=== PATIENT | male | born 1960 | race Caucasian/White ===

== ENCOUNTER 2017-09-01 08:51 | Emergency (ER) | payer MEDICAID ==
[~2017-09-01] VITALS: Ht 175.3 cm; Wt 104.3 kg
[~2017-09-01 08:51] MED LIST: ATORVASTATIN CA20 M1 PO; CLARITIN 10MG T10 MG PO; FLONASE 50 MCG16 GM; METHOCARBAMOL750 MG PO; NIFEDIPINE30 MG PO; OMEPRAZOLE40 MG PO; TRAMADOL 50MG T1 PAK PO
--- OUTSIDE RECORDS SUMMARY | 2017-09-01 09:00 | External Medical Summary Rpt | CCD ---
Author Author , CRISTELA ARCHIBALD Address Unknown Phone Care Team Providers Care Conductor Sleeping Car Name Role Phone ALFONZO ALIZE, BESSON Unavailable Unavailable ALIZE BESSON ALIZE, BESSON Unavailable Unavailable ALIZE HILDA DENNIS, Unavailable Unavailable HILDA DENNIS HILDA DENNIS, Unavailable Unavailable HILDA DENNIS OLMOS, OLMOS Unavailable Unavailable ZAIRA AUGUSTINE, ZAIRA Unavailable Unavailable [facility] ZAIRA AUGUSTINE, ZAIRA Unavailable Unavailable [facility] Un[facility], [facility] Unavailable [facility], [facility], Unavailable [facility]available [facility] Unavailable Unavailable [facility], [facility] Unavailable Unavailable [facility], [facility], Unavailable Unavailable PLL[facility], [facility] Purpose Continuity of Care Document - 12-29-2013 through 2016 Problems Code Diagnosis DOS Provider Status J0101 ACUTE 06-13-2017 [facility] MAXILLARY INTERNAL SINUSITIS MED J0141 ACUTE 03-05-2017 [facility] PANSINUSITI INTERNAL S MED J302 OTHER 03-05-2017 [facility] ALLERGIC INTERNAL RHINITIS MED J309 ALLERGIC 10-15-2016 [facility] RHINITIS PHYSICIANS UNSPECIFIED GROUP J320 CHRONIC 10-15-2016 [facility] MAXILLARY PHYSICIANS SINUSITIS GROUP J322 CHRONIC 10-15-2016 [facility] ETHMOIDAL PHYSICIANS SINUSITIS GROUP J342 DEVIATED 10-15-2016 [facility] NASAL PHYSICIANS SEPTUM GROUP [id number] ALLERGY 09-17-2016 [facility]PEC[facility]IED [facility] SUBSEQUENT INTERNAL ENCOUNTER MED L270 GEN SKIN 09-12-2016 [facility] ERUPTION [facility] D/T RX & INTERNAL MED TAKEN MED INTERNALLY J329 CHRONIC 06-26-2016 [facility] SINUSITIS [facility] UNSPECIFIED INTERNAL MED J3489 OTHER 04-20-2016 [facility] SPECIFIED PHYSICIANS DISORDERS GROUP NOSE AND NASAL SINUSES R748 ABNORMAL 03-07-2016 [facility] OTHER SERUM INC ENZYMES J0190 ACUTE 01-17-2016 [facility] SINUSITIS PHYSICIANS UNSPECIFIED GROUP E6601 MORBID 11-18-2015 [facility]ERE [facility] OBESITY DUE INTERNAL TO EXCESS MED CALORIES E785 HYPERLIPIDE 11-18-2015 [facility] [place] UNSPECIFIED INTERNAL MED I10 ESSENTIAL 11-18-2015 [facility] HYPERTENSIO INTERNAL N MED M150 PRIMARY 11-18-2015 [facility] GENERALIZED [place] INTERNAL OSTEOARTHRI MED TIS R319 HEMATURIA 11-18-2015 [facility] UNSPECIFIED [facility] INTERNAL MED Z0000 ENCOUNTER 11-18-2015 [facility] GEN ADULT [place] MED EXAM INTERNAL W/O MED ABNORMAL FIND M1711 UNILATERAL 08-05-2015 [facility] PRIMARY PHYSICIANS OSTEOARTHRI GROUP TIS RIGHT KNEE M6751 PLICA 08-05-2015 [facility] SYNDROME PHYSICIANS RIGHT KNEE GROUP M1990 UNSPECIFIED 07-27-2015 [facility] TIS UNSPECIFIED SITE B76051 PAIN IN 07-27-2015 [facility]ICAL [facility] R2241 LOCALIZED 07-27-2015 [facility] RIGHT LOWER LIMB L17399 OTH 07-27-2015 [facility] SYMPTOMS & MEDICAL SIGNS [facility]AGING ASS INVOLV MUSCULOSKEL ETAL SYS H6092 UNSPECIFIED 07-01-2015 [facility]IS [facility] EXTERNA INTERNAL LEFT EAR MED [id number] UNS INJURY 07-01-2015 [facility] RT LOWER MEDICAL LEG INITIAL IMAGING ASS ENCOUNTER 34547 ACUT 06-21-2015 [facility] SUPPRATV PHYSICIANS OTITIS GROUP MEDIA W/SPONT RUP EARDRUM 77449 ACUT 06-12-2015 [facility] MED[facility] W/O SPONT RUP EARDRUM 4619 ACUTE 06-12-2015 [facility]ITIS, [facility] 3804 IMPACTED 03-14-2015 [facility] 6829 CELLULITIS 03-14-2015 [facility] UNSPECIFIED SITE 4019 UNSPECIFIED 03-07-2015 [facility] [place] N [address]292 OPEN WOUND 03-07-2015 [facility], WITHOUT PLLC MENTION COMPLICATIO N V065 NEED 03-07-2015 [facility] PROPHYLACTI [facility] C INC VACCINATION W/TETANUS-D [facility] 4739 UNSPECIFIED 12-20-2014 [facility] SINUSITIS [place] INTERNAL MED 74227 ESOPHAGEAL 12-20-2014 [facility] REFLUX [place] INTERNAL MED 7242 LUMBAGO 12-20-2014 [facility] [place] INTERNAL MED 03870 ACUTE PAIN 03-10-2014 [facility]UE TO [facility] TRAUMA INC 7295 PAIN IN 03-10-2014 [facility] SOFT [facility] TISSUES OF INC LIMB 4720 CHRONIC 01-16-2014 [facility] RHINITIS 5920 CALCULUS OF 01-16-2014 [facility] HERRMANN KIDNEY 7291 UNSPECIFIED 01-11-2014 [facility] MYALGIA [facility] AND INTERNAL MYOSITIS MED 5738 OTHER 12-29-2013 [facility] SPECIFIED DENNIS DISORDERS OF LIVER 591 HYDRONEPHRO 12-29-2013 [facility] SIS DENNIS 5921 CALCULUS OF 12-29-2013 [facility] URETER DENNIS 5935 HYDROURETER 12-29-2013 [facility] DENNIS 7880 RENAL COLIC 12-29-2013 [facility] AUGUST[facility] 78156 ABDOMINAL 12-29-2013 [facility] PAIN RIGHT [facility] LOWER INC QUADRANT 42897 ABDOMINAL 12-29-2013 [facility] AUGUSTINE PAIN OTHER SPECIFIED SITE V140 PERSONAL 12-29-2013 [facility]ISTORY [facility] ALLERGY TO INC PENICILLIN N23 UNSPECIFIED RENAL COLIC Medications Na ND Rx Da Fi Fi Am Da Di Ph RX Ph St me C No te ll ll ou ys ag ar # ys at rm s nt no ma ic us Or Da si cy ia de te s n re d OM 60 11 12 30 30 00 WA Ac EP 50 -0 -0 .0 00 L- ti RA 50 4- 1- 00 07 MA ve ZO 14 20 20 51 RT LE 60 17 [address] AR MA 40 CY MG #5 91 CA PS UL E NI 68 11 12 30 30 00 WA Ac FE 68 -0 -0 .0 00 L- ti DI 20 4- 1- 00 07 MA ve PI 10 20 20 49 RT NE 51 17 17 82 0 66 PH ER AR MA 30 CY MG #5 91 TA BL ET FL 60 11 12 16 30 00 WA Ac UT 43 -0 -0 .0 00 L- ti IC 20 4- 1- 00 07 MA ve 26 20 20 46 RT ON 41 17 17 64 E 5 71 PH OK AR OP MA CY 50 #5 MC 91 G SP RA Y CE 16 01 12 90 90 00 WA Ac TI 57 -2 -0 .0 00 L- ti RI 10 3- 1- 00 08 MA ve ZI 40 20 20 83 RT NE 25 17 17 78 0 15 PH HC AR L MA 10 CY MG #5 91 TA BL ET CE 16 10 11 90 90 00 WA Ac TI 57 -1 -1 .0 00 L- ti RI 10 2- 0- 00 08 MA ve ZI 40 20 20 83 RT NE 25 17 17 78 0 15 PH HC AR L MA 10 CY MG #5 91 TA BL ET ME 31 10 11 60 30 00 WA Ac TH 72 -0 -0 .0 00 L- ti OC 20 9- 3- 00 07 MA ve AR 53 20 20 51 RT BA 30 17 17 42 MO 1 27 PH L AR 50 MA 0 CY MG #5 TA 91 BL ET NI 10 10 11 30 30 00 WA Ac FE 37 -0 -0 .0 00 L- ti DI 00 9- 3- 00 07 MA ve PI 67 20 20 49 RT NE 70 17 17 90 1 89 PH ER AR MA 30 CY MG #5 91 TA BL ET OM 60 10 11 30 30 00 WA Ac EP 50 -0 -0 .0 00 L- ti RA 50 9- 3- 00 07 MA ve ZO 14 20 20 51 RT LE 60 17 17 [address] AR MA 40 CY MG #5 91 CA PS UL E DI 16 10 10 60 30 00 WA Ac CL 57 -0 -2 .0 00 L- ti OF 10 2- 7- 00 07 MA ve EN 20 20 20 51 RT AC 15 17 17 29 0 67 PH SO AR D MA EC CY 75 #5 91 MG TA B LE 68 09 10 10 10 00 WA Ac VO 38 -2 -2 .0 00 L- ti FL 20 1- 0- 00 07 MA ve OX 01 20 20 51 RT AC 60 17 17 11 IN 1 00 PH AR 50 MA 0 CY MG #5 TA 91 BL ET TR 00 09 10 60 30 00 WA Ac AM 37 -1 -0 .0 00 L- ti AD 84 1- 6- 00 04 MA ve OL 15 20 20 53 RT 10 17 17 20 HC 5 54 PH L AR 50 MA CY MG #5 TA 91 BL ET NI 68 09 10 30 30 00 WA Ac FE 68 -0 -0 .0 00 L- ti DI 20 8- 6- 00 07 MA ve PI 10 20 20 49 RT NE 51 17 17 90 0 89 PH ER AR MA 30 CY MG #5 91 TA BL ET OM 60 09 10 30 30 00 WA Ac EP 50 -0 -0 .0 00 L- ti RA 50 8- 6- 00 07 MA ve ZO 14 20 20 49 RT LE 60 17 [address] AR MA 40 CY MG #5 91 CA PS UL E FL 60 09 10 16 30 00 WA Ac UT 43 -0 -0 .0 00 L- ti IC 20 8- 6- 00 07 MA ve 26 20 20 49 RT ON 41 17 17 33 E 5 37 PH OK AR OP MA CY 50 #5 MC 91 G SP RA Y FL 60 08 09 16 30 00 WA Ac UT 43 -0 -0 .0 00 L- ti IC 20 7- 1- 00 07 MA ve 26 20 20 46 RT ON 41 17 17 64 E 5 71 PH OK AR OP MA CY 50 #5 MC 91 G SP RA Y CE 16 08 09 90 90 00 WA Ac TI 57 -0 -0 .0 00 L- ti RI 10 5- 1- 00 08 MA ve ZI 40 20 20 83 RT NE 25 17 17 78 0 15 PH HC AR L MA 10 CY MG #5 91 TA BL ET DI 16 08 09 60 30 00 WA Ac CL 57 -0 -0 .0 00 L- ti OF 10 7- 1- 00 07 MA ve EN 20 20 20 45 RT AC 15 17 17 80 0 28 PH SO AR D MA EC CY 75 #5 91 MG TA B OM 60 08 09 30 30 00 WA Ac EP 50 -0 -0 .0 00 L- ti RA 50 8- 1- 00 07 MA ve ZO 14 20 20 49 RT LE 60 17 [address] AR MA 40 CY MG #5 91 CA PS UL E NI 68 08 09 30 30 00 WA Ac FE 68 -0 -0 .0 00 L- ti DI 20 8- 1- 00 07 MA ve PI 10 20 20 49 RT NE 51 17 17 82 0 66 PH ER AR MA 30 CY MG #5 91 TA BL ET OM 60 07 08 30 30 00 WA Ac EP 50 -1 -0 .0 00 L- ti RA 50 0- 4- 00 07 MA ve ZO 14 20 20 49 RT LE 60 17 [address] AR MA 40 CY MG #5 91 CA PS UL E NI 68 07 08 30 30 00 WA Ac FE 68 -1 -0 .0 00 L- ti DI 20 1- 4- 00 07 MA ve PI 10 20 20 49 RT NE 51 17 17 82 0 66 PH ER AR MA 30 CY MG #5 91 TA BL ET DI 16 07 07 60 30 00 WA Ac CL 57 -0 -2 .0 00 L- ti OF 10 3- 8- 00 07 MA ve EN 20 20 20 45 RT AC 15 17 17 80 0 28 PH SO AR D MA EC CY 75 #5 91 MG TA B TR 00 06 07 60 30 00 WA Ac AM 37 -2 -2 .0 00 L- ti AD 84 6- 1- 00 04 MA ve OL 15 20 20 53 RT 10 17 17 07 HC 5 61 PH L AR 50 MA CY MG #5 TA 91 BL ET NI 10 02 27 30 30 00 MI Ac FE 37 -1 -0 .0 00 L- ti DI 00 0- 7- 00 07 MA ve PI 67 20 20 48 RT NE 70 17 17 14 1 67 PH ER AR MA 30 CY MG #5 91 TA BL ET OM 60 06 30 30 00 MI Ac EP 50 -1 -0 .0 00 L- ti RA 50 0- 7- 00 07 MA ve ZO 14 20 20 47 RT LE 60 17 [address] AR MA 40 CY MG #5 91 CA PS UL E LE 68 06 07 10 10 00 MI Ac VO 38 -1 -0 .0 00 L- ti FL 20 3- 7- 00 07 MA ve OX 01 20 20 49 RT AC 60 17 17 33 IN 1 24 PH AR 50 MA 0 CY MG #5 TA 91 BL ET FL 60 06 07 16 30 00 MI Ac UT 43 -1 -0 .0 00 L- ti IC 20 3- 7- 00 07 MA ve 26 20 20 49 RT ON 41 17 17 33 E 5 37 PH OK AR OP MA CY 50 #5 MC 91 G SP RA Y CE 16 05 06 90 90 00 MI Ac TI 57 -2 -2 .0 00 L- ti RI 10 9- 3- 00 08 MA ve ZI 40 20 20 83 RT NE 25 17 17 78 0 15 PH HC AR L MA 10 CY MG #5 91 TA BL ET NI 10 05 30 30 00 WA Ac FE 37 -0 -0 .0 00 L- ti DI 00 9- 2- 00 07 MA ve PI 67 20 20 48 RT NE 70 17 17 14 1 67 PH ER AR MA 30 CY MG #5 91 TA BL ET OM 60 05 06 30 30 00 WA Ac EP 50 -0 -0 .0 00 L- ti RA 50 9- 2- 00 07 MA ve ZO 14 20 20 47 RT LE 60 17 [address] AR MA 40 CY MG #5 91 CA PS UL E TR 00 04 05 60 30 00 WA Ac AM 37 -1 -0 .0 00 L- ti AD 84 2- 5- 00 04 MA ve OL 15 20 20 52 RT 10 17 17 99 HC 5 97 PH L AR 50 MA CY MG #5 TA 91 BL ET CE 16 04 05 30 30 00 MI Ac TI 57 -1 -0 .0 00 L- ti RI 10 0- 5- 00 08 MA ve ZI 40 20 20 83 RT NE 25 17 17 64 0 41 PH HC AR L MA 10 CY MG #5 91 TA BL ET FL 60 04 05 16 30 00 MI Ac UT 43 -1 -0 .0 00 L- ti IC 20 0- 5- 00 07 MA ve 26 20 20 46 RT ON 41 17 17 64 E 5 71 PH OK AR OP MA CY 50 #5 MC 91 G SP RA Y OM 60 04 05 30 30 00 MI Ac EP 50 -1 -0 .0 00 L- ti RA 50 0- 5- 00 07 MA ve ZO 14 20 20 47 RT LE 60 17 17 [address] AR MA 40 CY MG #5 91 CA PS UL E NI 10 04 05 30 30 00 MI Ac FE 37 -1 -0 .0 00 L- ti DI 00 0- 5- 00 07 MA ve PI 67 20 20 48 RT NE 70 17 17 14 1 67 PH ER AR MA 30 CY MG #5 91 TA BL ET NI 10 03 04 30 30 00 MI Ac FE 37 -0 -0 .0 00 L- ti DI 00 9- 7- 00 07 MA ve PI 67 20 20 45 RT NE 70 17 17 80 1 27 PH ER AR MA 30 CY MG #5 91 TA BL ET OK 00 03 04 20 5 00 MI Ac OM 60 -0 -0 0. 00 L- ti ET 31 9- 7- 07 MA ve GONZALEZ 58 20 20 0 46 RT ZI 65 17 17 87 NE 8 31 PH -D AR M MA SY CY RU P #5 91 DI 16 03 04 60 30 00 MI Ac CL 57 -0 -0 .0 00 L- ti OF 10 9- 7- 00 07 MA ve EN 20 20 20 45 RT AC 15 17 17 80 0 28 PH SO AR D MA EC CY 75 #5 91 MG TA B OM 60 03 04 30 30 00 MI Ac EP 50 -0 -0 .0 00 L- ti RA 50 9- 7- 00 07 MA ve ZO 14 20 20 47 RT LE 60 17 [address] AR MA 40 CY MG #5 91 CA PS UL E FL 60 03 03 16 30 00 WA Ac UT 43 -0 -3 .0 00 L- ti IC 20 2- 1- 00 07 MA ve 26 20 20 46 RT ON 41 17 17 64 E 5 71 PH OK AR OP MA CY 50 #5 MC 91 G SP RA Y OM 60 02 03 30 30 00 WA Ac EP 50 -0 -0 .0 00 L- ti RA 50 7- 3- 00 07 MA ve ZO 14 20 20 44 RT LE 60 17 [address] AR MA 40 CY MG #5 91 CA PS UL E NI 10 02 30 30 00 WA Ac FE 37 -0 -0 .0 00 L- ti DI 00 7 3- 00 07 MA ve PI 67 20 20 45 RT NE 70 17 17 80 1 27 PH ER AR MA 30 CY MG #5 91 TA BL ET OK 00 02 03 20 5 00 WA Ac OM 60 -0 -0 0. 00 L- ti ET 31 4- 3- 07 MA ve GONZALEZ 58 20 20 0 46 RT ZI 65 17 17 87 NE 8 31 PH -D AR M MA SY CY RU P #5 91 FL 60 01 02 16 30 00 WA Ac UT 43 -2 -1 .0 00 L- ti IC 20 3 7- 00 07 MA ve 26 20 20 46 RT ON 41 17 17 64 E 5 71 PH OK AR OP MA CY 50 #5 MC 91 G SP RA Y NI 10 01 02 30 30 00 WA Ac FE 37 -0 -0 .0 00 L- ti DI 00 9 3- 00 07 MA ve PI 67 20 20 45 RT NE 70 17 17 80 1 27 PH ER AR MA 30 CY MG #5 91 TA BL ET OM 57 01 02 30 30 00 WA Ac EP 23 -0 -0 .0 00 L- ti RA 70 9- 3- 00 07 MA ve ZO 16 20 20 44 RT LE 23 17 [address] AR MA 40 CY MG #5 91 CA PS UL E LE 68 01 02 10 10 00 WA Ac VO 38 -0 -0 .0 00 L- ti FL 20 6- 3- 00 07 MA ve OX 01 20 20 46 RT AC 60 17 17 30 IN 1 39 PH AR 50 MA 0 CY MG #5 TA 91 BL ET OK 00 12 01 14 8 00 MI Ac ED 14 -2 -2 .0 00 L- ti NI 39 6- 7- 00 07 MA ve SO 73 20 20 46 RT NE 80 16 17 06 5 00 PH 20 AR MA MG CY TA #5 BL 91 ET CL 63 12 01 30 10 00 MI Ac IN 30 -1 -2 .0 00 L- ti DA 40 9- 0- 00 07 MA ve MY 69 20 20 45 RT CI 30 16 17 93 N 1 13 PH HC AR L MA 30 CY 0 MG #5 91 CA PS UL E MO 54 12 01 30 30 00 MI Ac NT 45 -1 -1 .0 00 L- ti EL 80 4- 3- 00 07 MA ve UK 89 20 20 45 RT 01 16 17 85 T 0 11 PH SO AR D MA 10 CY MG #5 91 TA BL ET OM 57 12 01 30 30 00 MI Ac EP 23 -1 -1 .0 00 L- ti RA 70 0- 3- 00 07 MA ve ZO 16 20 20 44 RT LE 23 16 [address] AR MA 40 CY MG #5 91 CA PS UL E NI 10 12 01 30 30 00 MI Ac FE 37 -1 -1 .0 00 L- ti DI 00 2- 3- 00 07 MA ve PI 67 20 20 45 RT NE 70 16 17 80 1 27 PH ER AR MA 30 CY MG #5 91 TA BL ET DI 16 12 01 60 30 00 MI Ac CL 57 -1 -1 .0 00 L- ti OF 10 2- 3- 00 07 MA ve EN 20 20 20 45 RT AC 15 16 17 80 0 28 PH SO AR D MA EC CY 75 #5 91 MG TA B FL 60 12 01 16 30 00 MI Ac UT 43 -0 -0 .0 00 L- ti IC 20 5- 9- 00 07 MA ve 26 20 20 44 RT ON 41 16 17 50 E 5 27 PH OK AR OP MA CY 50 #5 MC 91 G SP RA Y CE 16 12 30 30 00 MI Ac TI 57 -0 -0 .0 00 L- ti RI 10 5- 9- 00 08 MA ve ZI 40 20 20 83 RT NE 25 16 17 55 0 97 PH HC AR L MA 10 CY MG #5 91 TA BL ET Procedures Procedure DOS Code Location Performer Comment INJECTION J3301 [facility] 7 [facility] TRIAMCINO INTERNAL LONE MED ACETONIDE NOS 10 MG COLLECTIO 06749 [facility] N VENOUS 5 [facility] BLOOD INC INC VENIPUNCT URE COMPREHEN 03251 [facility] SIVE 5 [facility] METABOLIC INC INC PANEL LIPID 20829 [facility] PANEL 5 [facility] INC INC RADEX 33171 [facility] ANKLE 4 [facility] COMPLETE INC INC MINIMUM 3 VIEWS RADEX 28374 [facility] FOOT 4 [facility] COMPLETE INC INC MINIMUM 3 VIEWS URNLS DIP 27056 [facility] BESSON 4 [facility] STICK/TAB LET RGNT NON-AUTO W/O MICRSCP INJECTION J0696 [facility] BESSON 4 [facility] CEFTRIAXO NE SODIUM PER 250 MG INJECTION J3301 [facility] BESSON 4 [facility] TRIAMCINO LONE ACETONIDE NOS 10 MG IM ADM 41096 AL[facility] GOLDBERGSON PRQ ID 4 [facility] SUBQ/IM NJXS 1 VACCINE URNLS DIP 67423 [facility]ESSON 4 [facility] ALIZE STICK/TAB INTERNAL LET RGNT MED NON-AUTO W/O MICRSCP 3D 14041 [facility] HILDA RENDERING 4 DENNIS DENNIS W/INTERP& [place] [address] H[facility]DA HILDA ABDOMEN & 4 DENNIS DENNIS PELVIS W/O CONTRAST MATERIAL THER 13649 [facility] PROPH/DX 4 [facility] NJX IV INC INC PUSH SINGLE/1S T SBST/DRUG Encounters Encounter Start End Date Code Location Performer Type Date [facility] - 6 6 [facility] - 4 4 [facility] OFFICE 24646 [facility] ALIZE T VISIT 15 MINUTES OFFICE 44934 [facility] [place] [facility] T VISIT INTERNAL 15 MED MINUTES HOSPITAL ROD - 4 4 [facility] 67690 [facility] MENESES DEPT 4 4 [facility] AUGUSTINE VISIT HIGH SEVERITY& THREAT FUNJ
--- OUTSIDE RECORDS SUMMARY | 2017-09-01 09:00 | External Medical Summary Rpt | CCD ---
Author Author , CRISTELA ARCHIBALD Address Unknown Phone Care Team Providers Care Tea Blender Name Role Phone ALFONZO ALIZE, BESSON Unavailable Unavailable ALIZE BESSON ALIZE, BESSON Unavailable Unavailable ALIZE HILDA DENNIS, Unavailable Unavailable HILDA DENNIS HILDA DENNIS, Unavailable Unavailable HILDA DENNIS OLMOS, OLMOS Unavailable Unavailable [facility] AUGUSTINE, ZAIRA Unavailable Unavailable [facility] AUGUSTINE, ZAIRA Unavailable Unavailable [facility], [facility] Unavailable [facility], Unavailable Unavailable [facility] [place] Unavailable Unavailable [facility], [facility] Unavailable Unavailable [...] ALLERGIC INTERNAL RHINITIS MED J309 ALLERGIC 10-15-2016 [facility] RHINITIS PHYSICIANS UNSPECIFIED GROUP J320 CHRONIC 10-15-2016 [facility] MAXILLARY PHYSICIANS SINUSITIS GROUP J322 CHRONIC 10-15-2016 [facility] ETHMOIDAL PHYSICIANS SINUSITIS GROUP J342 DEVIATED 10-15-2016 [facility] NASAL PHYSICIANS SEPTUM GROUP [id number] ALLERGY 09-17-2016 [facility] UNSPECIFIED [facility] SUBSEQUENT INTERNAL ENCOUNTER MED L270 GEN SKIN 09-12-2016 [facility] ERUPTION [facility] D/T RX & INTERNAL MED TAKEN MED INTERNALLY J329 CHRONIC 06-26-2016 [facility] SINUSITIS [facility] UNSPECIFIED INTERNAL MED J3489 OTHER 04-20-2016 [facility] SPECIFIED PHYSICIANS DISORDERS GROUP NOSE AND NASAL SINUSES R748 ABNORMAL 03-07-2016 [facility] OTHER SERUM INC ENZYMES J0190 ACUTE 01-17-2016 [facility] SINUSITIS PHYSICIANS UNSPECIFIED GROUP E6601 MORBID 11-18-2015 [facility] SE[facility]ERE [place] OBESITY DUE INTERNAL TO EXCESS MED CALORIES E785 HYPERLIPIDE 11-18-2015 [facility] ADELA [place] UNSPECIFIED INTERNAL MED I10 ESSENTIAL 11-18-2015 [facility] HYPERTENSIO INTERNAL N MED M150 PRIMARY 11-18-2015 [facility] GENERALIZED [place] INTERNAL OSTEOARTHRI MED TIS R319 HEMATURIA 11-18-2015 [facility] UNSPECIFIED [facility] INTERNAL MED Z0000 ENCOUNTER 11-18-2015 [facility] GEN ADULT [place] MED EXAM INTERNAL W/O MED ABNORMAL FIND M1711 UNILATERAL 08-05-2015 [facility] PRIMARY PHYSICIANS OSTEOARTHRI GROUP TIS RIGHT KNEE M6751 PLICA 08-05-2015 [facility] SYNDROME PHYSICIANS RIGHT KNEE GROUP M1990 UNSPECIFIED 07-27-2015 [facility] TIS UNSPECIFIED SITE E49980 PAIN IN 07-27-2015 [facility]EE [facility] R2241 LOCALIZED 07-27-2015 [facility]LL[facility] MASS [facility] LUMP IM[facility] ASS RIGHT LOWER LIMB O02419 OTH 07-27-2015 [facility] SYMPTOMS & MEDICAL SIGNS [facility]AGING ASS INVOLV MUSCULOSKEL ETAL SYS H6092 UNSPECIFIED 07-01-2015 [facility] OTITIS [facility] EXTERNA INTERNAL LEFT EAR MED [id number] UNS INJURY 07-01-2015 [facility] RT LOWER MEDICAL LEG INITIAL IMAGING ASS ENCOUNTER 38105 ACUT 06-21-2015 [facility] SUPPRATV PHYSICIANS OTITIS GROUP MEDIA W/SPONT RUP EARDRUM 64524 ACUT 06-12-2015 [facility] MEDIA W/O SPONT RUP EARDRUM 4619 ACUTE 06-12-2015 [facility] SINUSITIS, [facility] 3804 IMPACTED 03-14-2015 [facility] 6829 CELLULITIS 03-14-2015 [facility] AND [facility] UNSPECIFIED SITE 4019 UNSPECIFIED 03-07-2015 [facility]SSENTIAL [facility] HYPERTENSIO INC N 02767 OPEN WOUND 03-07-2015 [facility], WITHOUT PLLC MENTION COMPLICATIO N V065 NEED 03-07-2015 [facility] PROPHYLACTI [facility] C INC VACCINATION W/TETANUS-D [facility] 4739 UNSPECIFIED 12-20-2014 [facility] SINUSITIS [place] INTERNAL MED 83358 ESOPHAGEAL 12-20-2014 [facility] REFLUX [place] INTERNAL MED 7242 LUMBAGO 12-20-2014 [facility] [place] INTERNAL MED 96920 ACUTE PAIN 03-10-2014 [facility] DUE TO MEM [...] DENNIS 7880 RENAL COLIC 12-29-2013 [facility] AUGUSTINE 43642 ABDOMINAL 12-29-2013 [facility] PAIN RIGHT [facility] LOWER INC QUADRANT 92606 ABDOMINAL 12-29-2013 [facility] A[facility]UST[facility] PAIN OTHER SPECIFIED [...] 17 17 64 E 5 71 PH WA AR OP MA CY 50 #5 MC [...] 17 17 33 E 5 37 PH WA AR OP MA CY 50 #5 MC 91 G SP RA Y FL 60 08 09 16 30 00 WA Ac UT 43 -0 -0 .0 00 L- ti IC 20 7- 1- 00 07 MA ve 26 20 20 46 RT ON 41 17 17 64 E 5 71 PH WA AR OP MA CY 50 #5 MC [...] NI 10 02 27 30 30 00 AR Ac FE 37 -1 -0 .0 00 L- ti DI 00 0- 7- 00 07 MA ve PI 67 20 20 48 RT NE 70 17 17 14 1 67 PH ER AR MA 30 CY MG #5 91 TA BL ET OM 60 06 30 30 00 AR Ac EP 50 -1 -0 .0 00 L- ti RA 50 0- 7- 00 07 MA ve ZO 14 20 20 47 RT LE 60 17 17 [address] AR MA 40 CY MG #5 91 CA PS UL E LE 68 06 07 10 10 00 AR Ac VO 38 -1 -0 .0 00 L- ti FL 20 3- 7- 00 07 MA ve OX 01 20 20 49 RT AC 60 17 17 33 IN 1 24 PH AR 50 MA 0 CY MG #5 TA 91 BL ET FL 60 06 07 16 30 00 AR Ac UT 43 -1 -0 .0 00 L- ti IC 20 3- 7- 00 07 MA ve 26 20 20 49 RT ON 41 17 17 33 E 5 37 PH WA AR OP MA CY 50 #5 MC 91 G SP RA Y CE 16 05 06 90 90 00 AR Ac TI 57 -2 -2 .0 00 [...] CE 16 04 05 30 30 00 AR Ac TI 57 -1 -0 .0 00 L- ti RI 10 0- 5- 00 08 MA ve ZI 40 20 20 83 RT NE 25 17 17 64 0 41 PH HC AR L MA 10 CY MG #5 91 TA BL ET FL 60 04 05 16 30 00 AR Ac UT 43 -1 -0 .0 00 L- ti IC 20 0- 5- 00 07 MA ve 26 20 20 46 RT ON 41 17 17 64 E 5 71 PH WA AR OP MA CY 50 #5 MC 91 G SP RA Y OM 60 04 05 30 30 00 AR Ac EP 50 -1 -0 .0 00 L- ti RA 50 0- 5- 00 07 MA ve ZO 14 20 20 47 RT LE 60 17 17 [address] AR MA 40 CY MG #5 91 CA PS UL E NI 10 04 05 30 30 00 AR Ac FE 37 -1 -0 .0 00 L- ti DI 00 0- 5- 00 07 MA ve PI 67 20 20 48 RT NE 70 17 17 14 1 67 PH ER AR MA 30 CY MG #5 91 TA BL ET NI 10 03 04 30 30 00 AR Ac FE 37 -0 -0 .0 00 L- ti DI 00 9- 7- 00 07 MA ve PI 67 20 20 45 RT NE 70 17 17 80 1 27 PH ER AR MA 30 CY MG #5 91 TA BL ET WA 00 03 04 20 5 00 AR Ac OM 60 -0 -0 0. 00 L- ti ET 31 9- 7- 07 MA ve GONZALEZ 58 20 20 0 46 RT ZI 65 17 17 87 NE 8 31 PH -D AR M MA SY CY RU P #5 91 DI 16 03 04 60 30 00 AR Ac CL 57 -0 -0 .0 00 L- ti OF 10 9- 7- 00 07 MA ve EN 20 20 20 45 RT AC 15 17 17 80 0 28 PH SO AR D MA EC CY 75 #5 91 MG TA B OM 60 03 04 30 30 00 AR Ac EP 50 -0 -0 .0 00 [...] 17 17 64 E 5 71 PH WA AR OP MA CY 50 #5 MC [...] CY MG #5 91 TA BL ET WA 00 02 03 20 5 00 WA [...] 17 17 64 E 5 71 PH WA AR OP MA CY 50 #5 MC [...] CY MG #5 TA 91 BL ET WA 00 12 01 14 8 00 AR Ac ED 14 -2 -2 .0 00 L- ti NI 39 6- 7- 00 07 MA ve SO 73 20 20 46 RT NE 80 16 17 06 5 00 PH 20 AR MA MG CY TA #5 BL 91 ET CL 63 12 01 30 10 00 AR Ac IN 30 -1 -2 .0 00 L- ti DA 40 9- 0- 00 07 MA ve MY 69 20 20 45 RT CI 30 16 17 93 N 1 13 PH HC AR L MA 30 CY 0 MG #5 91 CA PS UL E MO 54 12 01 30 30 00 AR Ac NT 45 -1 -1 .0 00 L- ti EL 80 4- 3- 00 07 MA ve UK 89 20 20 45 RT 01 16 17 85 T 0 11 PH SO AR D MA 10 CY MG #5 91 TA BL ET OM 57 12 01 30 30 00 AR Ac EP 23 -1 -1 .0 00 L- ti RA 70 0- 3- 00 07 MA ve ZO 16 20 20 44 RT LE 23 16 17 [address] AR MA 40 CY MG #5 91 CA PS UL E NI 10 12 01 30 30 00 AR Ac FE 37 -1 -1 .0 00 L- ti DI 00 2- 3- 00 07 MA ve PI 67 20 20 45 RT NE 70 16 17 80 1 27 PH ER AR MA 30 CY MG #5 91 TA BL ET DI 16 12 01 60 30 00 AR Ac CL 57 -1 -1 .0 00 L- ti OF 10 2- 3- 00 07 MA ve EN 20 20 20 45 RT AC 15 16 17 80 0 28 PH SO AR D MA EC CY 75 #5 91 MG TA B FL 60 12 01 16 30 00 AR Ac UT 43 -0 -0 .0 00 L- ti IC 20 5- 9- 00 07 MA ve 26 20 20 44 RT ON 41 16 17 50 E 5 27 PH WA AR OP MA CY 50 #5 MC 91 G SP RA Y CE 16 12 30 30 00 AR Ac TI 57 -0 -0 .0 00 [...] LONE MED ACETONIDE NOS 10 MG COLLECTIO 47958 [facility] N VENOUS 5 [facility] BLOOD INC INC VENIPUNCT URE COMPREHEN 36960 R[facility] SIVE 5 [facility] METABOLIC INC INC PANEL LIPID 28834 [facility] PANEL 5 [facility] INC INC RADEX 63718 R[facility] ANKLE 4 [facility] COMPLETE INC INC MINIMUM 3 VIEWS RADEX 90861 [facility] FOOT 4 [facility] COMPLETE INC INC MINIMUM 3 VIEWS URNLS DIP 76336 BESSON BESSON 4 [facility] STICK/TAB LET RGNT NON-AUTO W/O MICRSCP INJECTION J0696 BESSON BESSON 4 [facility] ALIZE CEFTRIAXO NE SODIUM PER 250 MG INJECTION J3301 BESSON BESSON 4 [facility]IZE [facility]IZE TRIAMCINO LONE ACETONIDE NOS 10 MG IM ADM 71081 ALFONZO GOLDBERGSON PRQ ID 4 [facility] ALIZE SUBQ/IM NJXS 1 VACCINE URNLS DIP 22590 [facility] BESSON 4 [facility]LEY ALIZE STICK/TAB INTERNAL LET RGNT MED NON-AUTO W/O MICRSCP 3D 06741 HILDA HILDA RENDERING 4 DENNIS DENNIS W/INTERP& [place] [address] HILDA HILDA ABDOMEN & 4 DENNIS DENNIS PELVIS W/O CONTRAST MATERIAL THER 90553 [facility] PROPH/DX 4 [facility] NJX IV INC INC PUSH SINGLE/1S T SBST/DRUG Encounters Encounter Start End Date Code Location Performer Type Date [facility] - 6 6 [facility] 6 [facility] - 5 5 [facility] - 5 5 [facility] - 5 5 [facility] 5 5 [facility] R[facility] - 4 4 [facility] OFFICE 77103 ALFONZO MEJÍA [facility] 4 4 ALIZE ALIZE T VISIT 15 MINUTES OFFICE 22560 [facility] 4 [place] ALIZE T VISIT INTERNAL 15 MED MINUTES HOSPITAL ROD - 4 4 [facility] [address] ZAIRA MENESES DEPT 4 4 AUGUSTINE AUGUSTINE VISIT HIGH SEVERITY& THREAT FUNJ
--- OUTSIDE RECORDS SUMMARY | 2017-09-01 09:02 | External Medical Summary Rpt | CCD ---
Author Author , CRISTELA ARCHIBALD Address Unknown Phone [email or web address] Care Team Providers Care Internal Communications Writer Name Role Phone YUSUFANNETTE HERRMANN, YUSUFSON Unavailable Unavailable ALIZE ALFONZO ALIZE, BESSON Unavailable Unavailable ALIZE HILDA DENNIS, Unavailable Unavailable HILDA DENNIS HILDA DENNIS, Unavailable Unavailable HILDA DENNIS OLMSO, OLMOS Unavailable Unavailable ZAIRA AUGUSTINE, ZAIRA Unavailable Unavailable [facility]INE ZAIRA AUGUSTINE, ZAIRA Unavailable Unavailable [facility] Un[facility] Unavailable [facility], [facility], [facility]available Unavailable [facility] Unavailable Unavailable IM[facility]ING [facility], [facility] Unavailable Unavailable INTERNAL [...] ALLERGIC INTERNAL RHINITIS MED J309 ALLERGIC 10-15-2016 [facility] RHINITIS PHYSICIANS UNSPECIFIED GROUP J320 CHRONIC 10-15-2016 [facility] MAXILLARY PHYSICIANS SINUSITIS GROUP J322 CHRONIC 10-15-2016 [facility] ETHMOIDAL PHYSICIANS SINUSITIS GROUP J342 DEVIATED 10-15-2016 [facility] NASAL PHYSICIANS SEPTUM GROUP [id number] ALLERGY 09-17-2016 [facility] UNSPECIFIED [place] SUBSEQUENT INTERNAL ENCOUNTER MED L270 GEN SKIN 09-12-2016 [facility] ERUPTION [facility] D/T RX & INTERNAL MED TAKEN MED INTERNALLY J329 CHRONIC 06-26-2016 [facility] SINUSITIS [facility] UNSPECIFIED INTERNAL MED J3489 OTHER 04-20-2016 [facility] SPECIFIED PHYSICIANS DISORDERS GROUP NOSE AND NASAL SINUSES R748 ABNORMAL 03-07-2016 [facility] OTHER SERUM INC ENZYMES J0190 ACUTE 01-17-2016 [facility] SINUSITIS PHYSICIANS UNSPECIFIED GROUP E6601 MORBID 11-18-2015 [facility] SEVERE [place] OBESITY DUE INTERNAL TO EXCESS MED CALORIES E785 HYPERLIPIDE 11-18-2015 [facility] ADELA [place] UNSPECIFIED INTERNAL MED I10 ESSENTIAL 11-18-2015 [facility] PRIMARY [place] HYPERTENSIO INTERNAL N MED M150 PRIMARY 11-18-2015 [facility] GENERALIZED [place] INTERNAL OSTEOARTHRI MED TIS R319 HEMATURIA 11-18-2015 [facility] UNSPECIFIED [place] INTERNAL MED Z0000 ENCOUNTER 11-18-2015 [facility] GEN ADULT [place] MED EXAM INTERNAL W/O MED ABNORMAL FIND M1711 UNILATERAL 08-05-2015 [facility] PRIMARY PHYSICIANS OSTEOARTHRI GROUP TIS RIGHT KNEE M6751 PLICA 08-05-2015 [facility] SYNDROME PHYSICIANS RIGHT KNEE GROUP M1990 UNSPECIFIED 07-27-2015 [facility] TIS UNSPECIFIED SITE [id number] PAIN IN 07-27-2015 [place] RIGHT [facility]ICAL IM[facility]ING ASS R2241 LOCALIZED 07-27-2015 [place] SWELLING MEDICAL MASS & LUMP IMAGING ASS RIGHT LOWER LIMB W06377 OTH 07-27-2015 [place] SYMPTOMS & MEDICAL SIGNS IMAGING ASS INVOLV MUSCULOSKEL ETAL SYS H6092 UNSPECIFIED 07-01-2015 [facility] OTITIS [place] EXTERNA INTERNAL LEFT EAR MED [id number] UNS INJURY 07-01-2015 [place] RT LOWER MEDICAL LEG INITIAL IMAGING ASS ENCOUNTER 67417 ACUT 06-21-2015 [facility] SUPPRATV PHYSICIANS OTITIS GROUP MEDIA W/SPONT RUP EARDRUM 88507 ACUT 06-12-2015 [place] [facility] MEDIA W/O SPONT RUP EARDRUM 4619 ACUTE 06-12-2015 [place] [facility] 3804 IMPACTED 03-14-2015 [facility] 6829 CELLULITIS 03-14-2015 [place] AND [facility] UNSPECIFIED SITE 4019 UNSPECIFIED 03-07-2015 [facility] ESSENTIAL [facility] HYPERTENSIO INC N 23277 OPEN WOUND 03-07-2015 [facility], WITHOUT PLLC MENTION COMPLICATIO N V065 NEED 03-07-2015 [facility] PROPHYLACTI [facility] C INC VACCINATION W/TETANUS-D [facility] 4739 UNSPECIFIED 12-20-2014 [facility] SINUSITIS [place] INTERNAL MED 53933 ESOPHAGEAL 12-20-2014 [facility] REFLUX [place] INTERNAL MED 7242 LUMBAGO 12-20-2014 [facility] [place] INTERNAL MED 22269 ACUTE PAIN 03-10-2014 [facility] DUE TO [facility] TRAUMA INC 7295 PAIN IN 03-10-2014 [facility] SOFT [facility] TISSUES OF INC LIMB 4720 CHRONIC 01-16-2014 [facility] HERRMANN RHINITIS 5920 CALCULUS OF 01-16-2014 [facility] HERRMANN KIDNEY 7291 UNSPECIFIED 01-11-2014 [facility] MYALGIA [place] AND INTERNAL MYOSITIS MED 5738 OTHER 12-29-2013 [facility] SPECIFIED DENNIS DISORDERS OF LIVER 591 HYDRONEPHRO 12-29-2013 [facility] SIS DENNIS 5921 CALCULUS OF 12-29-2013 [facility] URETER DENNIS 5935 HYDROURETER 12-29-2013 [facility] DENNIS 7880 RENAL COLIC 12-29-2013 [facility] AUG[facility]INE 25946 ABDOMINAL 12-29-2013 [facility] PAIN RIGHT [facility] LOWER INC QUADRANT 68793 ABDOMINAL 12-29-2013 [facility] PAIN OTHER SPECIFIED SITE V140 PERSONAL 12-29-2013 [facility] HISTORY OF [facility] ALLERGY TO INC PENICILLIN Medications Na ND Rx Da Fi Fi Am Da Di Ph RX Ph St me C No te ll ll ou ys ag ar # ys at rm s nt no ma ic us Or Da si cy ia de te s n re d CE 16 01 12 90 90 00 WA Ac TI 57 -2 -0 .0 00 L- ti RI 10 3- 1- 00 08 MA ve ZI 40 20 20 83 RT NE 25 17 17 78 0 15 PH HC AR L MA 10 CY MG #5 91 TA BL ET NI 68 11 12 30 30 00 [...] 17 17 64 E 5 71 PH MO AR OP MA CY 50 #5 MC 91 G SP RA Y OM 60 11 12 30 30 00 WA Ac EP 50 -0 -0 .0 00 L- ti RA 50 4- 1- 00 07 MA ve ZO 14 20 20 51 RT LE 60 17 17 [address] AR MA 40 CY MG #5 91 CA PS UL E CE 16 10 11 90 90 00 [...] DI 16 10 10 60 30 00 IA Ac CL 57 -0 -2 .0 00 [...] 17 17 33 E 5 37 PH MO AR OP MA CY 50 #5 MC 91 G SP RA Y TR 00 09 10 60 30 00 WA Ac AM 37 -1 -0 .0 00 L- ti AD 84 1- 6- 00 04 MA ve OL 15 20 20 53 RT 10 17 17 20 HC 5 54 PH L AR 50 MA CY MG #5 TA 91 BL ET CE 16 08 09 90 90 00 [...] #5 91 MG TA B FL 60 08 09 16 30 00 WA Ac UT 43 -0 -0 .0 00 L- ti IC 20 7- 1- 00 07 MA ve 26 20 20 46 RT ON 41 17 17 64 E 5 71 PH MO AR OP MA CY 50 #5 MC 91 G SP RA Y OM 60 08 09 30 30 00 [...] CY MG #5 TA 91 BL ET LE 68 06 07 10 10 00 WA Ac VO 38 -1 -0 .0 00 L- ti FL 20 3- 7- 00 07 MA ve OX 01 20 20 49 RT AC 60 17 17 33 IN 1 24 PH AR 50 MA 0 CY MG #5 TA 91 BL ET FL 60 06 07 16 30 00 WA Ac UT 43 -1 -0 .0 00 L- ti IC 20 3- 7- 00 07 MA ve 26 20 20 49 RT ON 41 17 17 33 E 5 37 PH MO AR OP MA CY 50 #5 MC 91 G SP RA Y OM 60 06 07 30 30 00 WA Ac EP 50 -1 -0 .0 00 L- ti RA 50 0- 7- 00 07 MA ve ZO 14 20 20 47 RT LE 60 17 17 [address] AR MA 40 CY MG #5 91 CA PS UL E NI 10 06 07 30 30 00 WA Ac FE 37 -1 -0 .0 00 L- ti DI 00 0- 7- 00 07 MA ve PI 67 20 20 48 RT NE 70 17 17 14 1 67 PH ER AR MA 30 CY MG #5 91 TA BL ET CE 16 05 06 90 90 00 IA Ac TI 57 -2 -2 .0 00 L- ti RI 10 9- 3- 00 08 MA ve ZI 40 20 20 83 RT NE 25 17 17 78 0 15 PH HC AR L MA 10 CY MG #5 91 TA BL ET NI 10 05 06 30 30 00 WA Ac FE 37 [...] #5 TA 91 BL ET NI 10 04 05 30 30 00 IA Ac FE 37 -1 -0 .0 00 L- ti DI 00 0- 5- 00 07 MA ve PI 67 20 20 48 RT NE 70 17 17 14 1 67 PH ER AR MA 30 CY MG #5 91 TA BL ET CE 16 04 05 30 30 00 IA Ac TI 57 -1 -0 .0 00 L- ti RI 10 0- 5- 00 08 MA ve ZI 40 20 20 83 RT NE 25 17 17 64 0 41 PH HC AR L MA 10 CY MG #5 91 TA BL ET FL 60 04 05 16 30 00 IA Ac UT 43 -1 -0 .0 00 L- ti IC 20 0- 5- 00 07 MA ve 26 20 20 46 RT ON 41 17 17 64 E 5 71 PH MO AR OP MA CY 50 #5 MC 91 G SP RA Y OM 60 04 05 30 30 00 IA Ac EP 50 -1 -0 .0 00 L- ti RA 50 0- 5- 00 07 MA ve ZO 14 20 20 47 RT LE 60 17 17 [address] AR MA 40 CY MG #5 91 CA PS UL E NI 10 03 04 30 30 00 IA Ac FE 37 -0 -0 .0 00 L- ti DI 00 9- 7- 07 MA ve PI 67 20 20 45 RT NE 70 17 17 80 1 27 PH ER AR MA 30 CY MG #5 91 TA BL ET MO 00 03 04 20 5 00 IA Ac OM 60 -0 -0 0. 00 L- ti ET 31 9- 7- 07 MA ve GONZALEZ 58 20 20 0 46 RT ZI 65 17 17 87 NE 8 31 PH -D AR M MA SY CY RU P #5 91 DI 16 03 04 60 30 00 IA Ac CL 57 -0 -0 .0 00 L- ti OF 10 9- 7- 07 MA ve EN 20 20 20 45 RT AC 15 17 17 80 0 28 PH SO AR D MA EC CY 75 #5 91 MG TA B OM 60 03 04 30 30 00 IA Ac EP 50 -0 -0 .0 00 [...] 17 17 64 E 5 71 PH MO AR OP MA CY 50 #5 MC 91 G SP RA Y MO 00 02 03 20 5 00 WA Ac OM 60 -0 -0 0. 00 L- ti ET 31 4- 3- 00 07 MA ve GONZALEZ 58 20 20 0 46 RT ZI 65 17 17 87 NE 8 31 PH -D AR M MA SY CY RU P #5 91 OM 60 02 03 30 30 00 WA Ac EP 50 -0 -0 .0 00 L- ti RA 50 7- 3- 00 07 MA ve ZO 14 20 20 44 RT LE 60 17 17 [address] AR MA 40 CY MG #5 91 CA PS UL E NI 10 02 03 30 30 00 IA Ac FE 37 -0 -0 .0 00 L- ti DI 00 7- 3- 00 07 MA ve PI 67 20 20 45 RT NE 70 17 17 80 1 27 PH ER AR MA 30 CY MG #5 91 TA BL ET FL 60 01 02 16 30 00 IA Ac UT 43 -2 -1 .0 00 L- ti IC 20 3- 7- 00 07 MA ve 26 20 20 46 RT ON 41 17 17 64 E 5 71 PH MO AR OP MA CY 50 #5 MC 91 G SP RA Y LE 68 01 02 10 10 00 IA Ac VO 38 -0 -0 .0 00 L- ti FL 20 6- 3- 00 07 MA ve OX 01 20 20 46 RT AC 60 17 17 30 IN 1 39 PH AR 50 MA 0 CY MG #5 TA 91 BL ET NI 10 01 02 30 30 00 [...] #5 91 CA PS UL E MO 00 12 01 14 8 00 WA Ac ED 14 -2 -2 .0 00 L- ti NI 39 6- 7- 00 07 MA ve SO 73 20 20 46 RT NE 80 16 17 06 5 00 PH 20 AR MA MG CY TA #5 BL 91 ET CL 63 12 01 30 10 00 WA Ac IN 30 -1 -2 .0 00 L- ti DA 40 9- 0- 00 07 MA ve MY 69 20 20 45 RT CI 30 16 17 93 N 1 13 PH HC AR L MA 30 CY 0 MG #5 91 CA PS UL E MO 54 12 30 30 00 IA Ac NT 45 -1 -1 .0 00 L- ti EL 80 4- 3- 00 07 MA ve UK 89 20 20 45 RT 01 16 17 85 T 0 11 PH SO AR D MA 10 CY MG #5 91 TA BL ET OM 57 12 30 30 00 IA Ac EP 23 -1 -1 .0 00 L- ti RA 70 0- 3- 00 07 MA ve ZO 16 20 20 44 RT LE 23 16 [address] AR MA 40 CY MG #5 91 CA PS UL E NI 10 12 30 30 00 IA Ac FE 37 -1 -1 .0 00 L- ti DI 00 2- 3- 00 07 MA ve PI 67 20 20 45 RT NE 70 16 17 80 1 27 PH ER AR MA 30 CY MG #5 91 TA BL ET DI 16 12 01 60 30 00 IA Ac CL 57 -1 -1 .0 00 L- ti OF 10 2- 3- 00 07 MA ve EN 20 20 20 45 RT AC 15 16 17 80 0 28 PH SO AR D MA EC CY 75 #5 91 MG TA B CE 16 12 30 30 00 IA Ac TI 57 -0 -0 .0 00 L- ti RI 10 5- 9- 00 08 MA ve ZI 40 20 20 83 RT NE 25 16 17 55 0 97 PH HC AR L MA 10 CY MG #5 91 TA BL ET FL 60 12 01 16 30 00 IA Ac UT 43 -0 -0 .0 00 L- ti IC 20 5- 9- 00 07 MA ve 26 20 20 44 RT ON 41 16 17 50 E 5 27 PH MO AR OP MA CY 50 #5 MC 91 G SP RA Y Procedures Procedure DOS Code Location Performer Comment INJECTION J3301 [facility] OLMOS 7 [facility] TRIAMCINO INTERNAL LONE MED ACETONIDE NOS 10 MG LIPID 49854 [facility] PANEL 5 [facility] INC INC COLLECTIO 47294 [facility] V[facility]ASCO N VENOUS 5 [facility] BLOOD INC INC VENIPUNCT URE COMPREHEN 11338 R[facility] VELASCO SIVE 5 [facility] METABOLIC INC INC PANEL RADEX 96242 R[facility] ANKLE 4 [facility] COMPLETE INC INC MINIMUM 3 VIEWS RADEX 97221 [facility] FOOT 4 [facility] COMPLETE INC INC MINIMUM 3 VIEWS INJECTION J3301 YUSUFSON BESSON 4 [facility]IZE ALIZE TRIAMCINO LONE ACETONIDE NOS 10 MG IM ADM 27274 ALFONZO MEJÍA PRQ ID 4 [facility] ALIZE SUBQ/IM NJXS 1 VACCINE URNLS DIP 29255 BESSON BESSON 4 ALIZE ALIZE STICK/TAB LET RGNT NON-AUTO W/O MICRSCP INJECTION J0696 BESSON BESSON 4 ALIZE ALIZE CEFTRIAXO NE SODIUM PER 250 MG URNLS DIP 79197 [facility] BESSON 4 [facility] ALIZE STICK/TAB INTERNAL LET RGNT MED NON-AUTO W/O MICRSCP 3D 22158 [facility] HILDA RENDERING 4 DENNIS DENNIS W/INTERP& [place] [address] HILDA HILDA ABDOMEN & 4 DENNIS DENNIS PELVIS W/O CONTRAST MATERIAL THER 19432 ROD VELASCO PROPH/DX 4 [facility] HOSP NJX IV INC INC PUSH SINGLE/1S T SBST/DRUG Encounters Encounter Start End Date Code Location Performer Type Date [facility] R[facility] - 6 6 [facility] 4 4 [facility] OFFICE 78716 ALFONZO MEJÍA OUTPATIEN 4 4 ALIZE ALIZE T VISIT 15 MINUTES OFFICE 77214 [facility] AL[facility] T [facility]ISIT INTERNAL 15 MED MINUTES EMERGENCY 63780 ZAIRA MENESES DEPT 4 4 [facility] A[facility]UST[facility] VISIT [facility]IGH SEVERITY& THREAT [facility] ROD - 4 4 [facility]
--- OUTSIDE RECORDS SUMMARY | 2017-09-01 09:02 | External Medical Summary Rpt | CCD ---
Author Author , CRISTELA ARCHIBALD Address Unknown Phone [email or web address] [email or web address] Care Utility Locate Technician Name Role Phone YUSUFANNETTE HERRMANN, YUSUFSON Unavailable Unavailable ALIZE ALFONZO ALIZE, BESSON Unavailable Unavailable ALIZE HILDA DENNIS, Unavailable Unavailable HILDA DENNIS HILDA DENNIS, Unavailable Unavailable HILDA DENNIS OLMOS, OLMOS Unavailable Unavailable ZAIRA AUGUSTINE, ZAIRA Unavailable Unavailable [facility] ZA[facility] AUGUSTINE, ZAIRA Unavailable Unavailable [facility], [facility] Unavailable [facility], [facility], Unavailable Unavailable [facility] Unavailable [facility]available [facility], [facility] Unavailable Unavailable INTERNAL [...] ALLERGIC INTERNAL RHINITIS MED J309 ALLERGIC 10-15-2016 [facility] RHINITIS PHYSICIANS UNSPECIFIED GROUP J320 CHRONIC 10-15-2016 [facility] MAXILLARY PHYSICIANS SINUSITIS GROUP J322 CHRONIC 10-15-2016 [facility] ETHMOIDAL PHYSICIANS SINUSITIS GROUP J342 DEVIATED 10-15-2016 [facility] NASAL PHYSICIANS SEPTUM GROUP [id number] ALLERGY 09-17-2016 [facility] SUBSEQUENT INTERNAL ENCOUNTER MED L270 GEN SKIN 09-12-2016 [facility] ERUPTION [facility] D/T RX & INTERNAL MED TAKEN MED INTERNALLY J329 CHRONIC 06-26-2016 [facility] SINUSITIS [facility] UNSPECIFIED INTERNAL MED J3489 OTHER 04-20-2016 [facility] SPECIFIED PHYSICIANS DISORDERS GROUP NOSE AND NASAL SINUSES R748 ABNORMAL 03-07-2016 [facility] OTHER SERUM INC ENZYMES J0190 ACUTE 01-17-2016 [facility] SINUSITIS PHYSICIANS UNSPECIFIED GROUP E6601 MORBID 11-18-2015 [facility]ERE [place] OBESITY DUE INTERNAL TO EXCESS MED CALORIES E785 HYPERLIPIDE 11-18-2015 [facility] ADELA [facility] UNSPECIFIED INTERNAL MED I10 ESSENTIAL 11-18-2015 [facility] PRIMARY [place] HYPERTENSIO INTERNAL N MED M150 PRIMARY 11-18-2015 [facility] GENERALIZED [place] INTERNAL OSTEOARTHRI MED TIS R319 HEMATURIA 11-18-2015 [facility] UNSPECIFIED [facility]LEY INTERNAL MED Z0000 ENCOUNTER 11-18-2015 [facility] GEN ADULT [place] MED EXAM INTERNAL W/O MED ABNORMAL FIND M1711 UNILATERAL 08-05-2015 [facility] PRIMARY PHYSICIANS OSTEOARTHRI GROUP TIS RIGHT KNEE M6751 PLICA 08-05-2015 [facility] SYNDROME PHYSICIANS RIGHT KNEE GROUP M1990 UNSPECIFIED 07-27-2015 [place] [facility] TIS UNSPECIFIED SITE [id number] PAIN IN 07-27-2015 [place] RIGHT [facility]ICAL [facility] ASS R2241 LOCALIZED 07-27-2015 [place] [facility] ASS RIGHT LOWER LIMB Y46632 OTH 07-27-2015 [place] SYMPTOMS & MEDICAL SIGNS IMAGING ASS INVOLV MUSCULOSKEL ETAL SYS H6092 UNSPECIFIED 07-01-2015 [facility]IS [place] EXTERNA INTERNAL LEFT EAR MED [id number] UNS INJURY 07-01-2015 [place] RT LOWER MEDICAL LEG INITIAL IMAGING ASS ENCOUNTER 48245 ACUT 06-21-2015 [facility] SUPPRATV PHYSICIANS OTITIS GROUP MEDIA W/SPONT RUP EARDRUM 16423 ACUT 06-12-2015 [place] [facility] MEDIA W/O SPONT RUP EARDRUM 4619 ACUTE 06-12-2015 [place] UNSPECMARY [facility] 3804 IMPACTED 03-14-2015 [facility] 6829 CELLULITIS 03-14-2015 [facility] UNSPECIFIED SITE 4019 UNSPECIFIED 03-07-2015 [facility] [place]YPERTENSIO INC N 56164 OPEN WOUND 03-07-2015 [facility] WITHOUT PLLC MENTION COMPLICATIO N V065 NEED 03-07-2015 [facility] PROPHYLACTI [facility] C INC VACCINATION W/TETANUS-D [facility] 4739 UNSPECIFIED 12-20-2014 [facility] SINUSITIS [facility] INTERNAL MED 03526 ESOPHAGEAL 12-20-2014 [facility] REFLUX [place] INTERNAL MED 7242 LUMBAGO 12-20-2014 [facility] INTERNAL MED 50599 ACUTE PAIN 03-10-2014 [facility] DUE TO MEM [...] DENNIS 7880 RENAL COLIC 12-29-2013 [facility] AUGUSTINE 14835 ABDOMINAL 12-29-2013 [facility] PA[facility] RIGHT [facility] LOWER INC QUADRANT 55707 ABDOMINAL 12-29-2013 [facility] AUGUSTINE PAIN OTHER SPECIFIED [...] 17 17 64 E 5 71 PH [place] AR OP MA CY 50 #5 MC [...] DI 16 10 10 60 30 00 TN Ac CL 57 -0 -2 .0 00 [...] 17 17 33 E 5 37 PH IL AR OP MA CY 50 #5 MC [...] 17 17 64 E 5 71 PH IL AR OP MA CY 50 #5 MC [...] 17 17 33 E 5 37 PH [place] AR OP MA CY 50 #5 MC [...] CE 16 05 06 90 90 00 TN Ac TI 57 -2 -2 .0 00 [...] NI 10 04 05 30 30 00 TN Ac FE 37 -1 -0 .0 00 L- ti DI 00 0- 5- 00 07 MA ve PI 67 20 20 48 RT NE 70 17 17 14 1 67 PH ER AR MA 30 CY MG #5 91 TA BL ET CE 16 04 05 30 30 00 TN Ac TI 57 -1 -0 .0 00 L- ti RI 10 0- 5- 00 08 MA ve ZI 40 20 20 83 RT NE 25 17 17 64 0 41 PH HC AR L MA 10 CY MG #5 91 TA BL ET FL 60 04 05 16 30 00 TN Ac UT 43 -1 -0 .0 00 L- ti IC 20 0- 5- 00 07 MA ve 26 20 20 46 RT ON 41 17 17 64 E 5 71 PH IL AR OP MA CY 50 #5 MC 91 G SP RA Y OM 60 04 05 30 30 00 TN Ac EP 50 -1 -0 .0 00 L- ti RA 50 0- 5- 00 07 MA ve ZO 14 20 20 47 RT LE 60 17 [address] AR MA 40 CY MG #5 91 CA PS UL E NI 10 03 04 30 30 00 TN Ac FE 37 -0 -0 .0 00 L- ti DI 00 9- 7- 07 MA ve PI 67 20 20 45 RT NE 70 17 17 80 1 27 PH ER AR MA 30 CY MG #5 91 TA BL ET IL 00 03 04 20 5 00 TN Ac OM 60 -0 -0 0. 00 L- ti ET 31 9- 7- 07 MA ve GONZALEZ 58 20 20 0 46 RT ZI 65 17 17 87 NE 8 31 PH -D AR M MA SY CY RU P #5 91 DI 16 03 04 60 30 00 TN Ac CL 57 -0 -0 .0 00 L- ti OF 10 9- 7- 07 MA ve EN 20 20 20 45 RT AC 15 17 17 80 0 28 PH SO AR D MA EC CY 75 #5 91 MG TA B OM 60 03 04 30 30 00 TN Ac EP 50 -0 -0 .0 00 [...] 17 17 64 E 5 71 PH IL AR OP MA CY 50 #5 MC 91 G SP RA Y IL 00 02 03 20 5 00 WA [...] NI 10 02 03 30 30 00 TN Ac FE 37 -0 -0 .0 00 L- ti DI 00 7- 3- 00 07 MA ve PI 67 20 20 45 RT NE 70 17 17 80 1 27 PH ER AR MA 30 CY MG #5 91 TA BL ET FL 60 01 02 16 30 00 TN Ac UT 43 -2 -1 .0 00 L- ti IC 20 3- 7- 00 07 MA ve 26 20 20 46 RT ON 41 17 17 64 E 5 71 PH IL AR OP MA CY 50 #5 MC 91 G SP RA Y LE 68 01 02 10 10 00 TN Ac VO 38 -0 -0 .0 00 [...] MG #5 91 CA PS UL E IL 00 12 01 14 8 00 WA [...] E MO 54 12 30 30 00 TN Ac NT 45 -1 -1 .0 00 L- ti EL 80 4- 3- 00 07 MA ve UK 89 20 20 45 RT 01 16 17 85 T 0 11 PH SO AR D MA 10 CY MG #5 91 TA BL ET OM 57 12 30 30 00 TN Ac EP 23 -1 -1 .0 00 L- ti RA 70 0- 3- 00 07 MA ve ZO 16 20 20 44 RT LE 23 16 [address] AR MA 40 CY MG #5 91 CA PS UL E NI 10 12 30 30 00 TN Ac FE 37 -1 -1 .0 00 L- ti DI 00 2- 3- 00 07 MA ve PI 67 20 20 45 RT NE 70 16 17 80 1 27 PH ER AR MA 30 CY MG #5 91 TA BL ET DI 16 12 01 60 30 00 TN Ac CL 57 -1 -1 .0 00 L- ti OF 10 2- 3- 00 07 MA ve EN 20 20 20 45 RT AC 15 16 17 80 0 28 PH SO AR D MA EC CY 75 #5 91 MG TA B CE 16 12 30 30 00 TN Ac TI 57 -0 -0 .0 00 L- ti RI 10 5- 9- 00 08 MA ve ZI 40 20 20 83 RT NE 25 16 17 55 0 97 PH HC AR L MA 10 CY MG #5 91 TA BL ET FL 60 12 01 16 30 00 TN Ac UT 43 -0 -0 .0 00 L- ti IC 20 5- 9- 00 07 MA ve 26 20 20 44 RT ON 41 16 17 50 E 5 27 PH IL AR OP MA CY 50 #5 MC 91 G SP RA Y Procedures Procedure DOS Code Location Performer Comment INJECTION J3301 [facility] OLMOS 7 [facility] TRIAMCINO INTERNAL LONE MED ACETONIDE NOS 10 MG LIPID 59931 [facility] PANEL 5 [facility] COLLECTIO 78424 [facility] N VENOUS 5 [facility] BLOOD INC INC VENIPUNCT URE COMPREHEN 42521 [facility] SIVE 5 [facility] METABOLIC INC INC PANEL RADEX 12628 R[facility] ANKLE 4 [facility] COMPLETE INC INC MINIMUM 3 VIEWS RADEX 03431 [facility] FOOT 4 [facility] COMPLETE INC INC MINIMUM 3 VIEWS INJECTION J3301 YUSUFSON BESSON 4 ALIZE ALIZE TRIAMCINO LONE ACETONIDE NOS 10 MG IM ADM 08850 ALFONZO MEJÍA PRQ ID 4 ALIZE ALIZE SUBQ/IM NJXS 1 VACCINE URNLS DIP 01371 BESSON BESSON 4 ALIZE ALIZE STICK/TAB LET RGNT NON-AUTO W/O MICRSCP INJECTION J0696 BESSON BESSON 4 ALIZE ALIZE CEFTRIAXO NE SODIUM PER 250 MG URNLS DIP 30672 [facility] BESSON 4 [facility] ALIZE STICK/TAB INTERNAL LET RGNT MED NON-AUTO W/O MICRSCP 3D 68684 HILDA HILDA RENDERING 4 DENNIS DENNIS W/INTERP& [place] [address] HILDA HILDA ABDOMEN & 4 DENNIS DENNIS PELVIS W/O CONTRAST MATERIAL THER 46534 [facility] VELASCO PROPH/DX 4 [facility] NJX IV INC INC PUSH SINGLE/1S T SBST/DRUG Encounters Encounter Start End Date Code Location Performer Type Date [facility] - 6 6 [facility] - 4 4 [facility] OFFICE 46281 ALFONZO MEJÍA OUTPATIEN 4 4 ALIZE ALIZE T VISIT 15 MINUTES OFFICE 61007 [facility] 4 [facility]LEY ALZIE T VISIT INTERNAL 15 MED MINUTES EMERGENCY 85340 ZAIRA MENESES DEPT 4 4 [facility] VISIT HIGH SEVERITY& THREAT [facility] ROD - 4 4 [facility]
--- OUTSIDE RECORDS SUMMARY | 2017-09-01 09:03 | External Medical Summary Rpt | CCD ---
Demographics Preferred Language Tristanian Marital Status Unknown Congregational Affiliation Unknown Race Unknown Ethnic Group Unknown Author Author , CRISTELA ARCHIBALD Address Unknown Phone Immunization No patient found.
--- OUTSIDE RECORDS SUMMARY | 2017-09-01 09:03 | External Medical Summary Rpt | CCD ---
Demographics Preferred Language Albanian Marital Status Unknown Advent Affiliation Unknown Race Unknown Ethnic Group Unknown Author Author , CRISTELA ARCHIBALD Address Unknown Phone Immunization No patient found.
--- OUTSIDE RECORDS SUMMARY | 2017-09-01 09:03 | External Medical Summary Rpt ---
Author Author CRISTELA Krueger, [employer] Organization [employer] Address Unknown Phone Unavailable
[2017-09-01] MEDS ORDERED: FLONASE 50 MCG16 GM (09:18)
[2017-09-01] MEDS ORDERED: LEVAQUIN500 MG PO (09:18)
--- NOTE | 2017-09-01 09:19 | Urgent Treatment Center Report ---
History of Present Issue Date/Time Seen by Provider 09/01/17 0910 Visit Reason Pt arrived:Walked Presenting Problem:PT C/O SINUS PRESSURE, CONGESTION, COUGH. Location if Accident: Onset of symptoms date/time:/ or onset unknown for:MEDICAL HX UNKNOWN Have you (or family members/close friends) recently traveled outside the [place]? N If Yes, where/when: Have you had exposure to infectious disease within the past month? TB? Other? Specify: Patient states that he has been having sinus pain and pressure for several days State that he has a history of sinus problems States that he has been having drainage and pressure behind his eyes and in his upper teeth State that he has this usually twice a year State that symptoms have continued to get worse over the last week so he came in today to get checked ALLERGIES Coded Allergies: Sulfa (Sulfonamide Antibiotics) (Mild, NA-DIARRHEA 12/09/15) Penicillins (UNKNOWN FROM CHILDHOOD 12/09/15) lincomycin (FROM CHILDHOOD 12/09/15) Home Medications Reported Medications TRAMADOL THP (Tramadol 50MG Tablet Take Home Pack (10)) 1-2 TAB PO PRN PRN PAIN #30 Loratadine (Claritin 10MG) 10 MG PO QHS #30 Fluticasone Propionate (Flonase 50 Mcg Nasal [place]) 1 SPRAY NA DAILY #16 Omeprazole (Omeprazole 40MG) 40 MG PO DAILY Methocarbamol (Methocarbamol 750MG) 750 MG PO BID Nifedipine (Nifedipine ER) 30 MG PO DAILY #30 History Medical History General CAD? No Angina: No ME: No Hypertension? Yes Hyperlipidemia? No CHF? No DVT? No PE? No COPD? No Asthma? No Anemia? No GERD? Yes Gastric ulcers? No GI Bleed? No Hernia? No Thyroid Problems? No Hypothyroidism? No CVA? No Seizures? No Diabetes? No Renal Insuffiency? No UTI? No Stones? Yes BPH? No GB Disease: No Nephritic Syndrome? No Asplenia? No Hepatitis? No Sickle Cell Disease? No Arthritis? Yes Migraines? No Cataracts? No Glaucoma? No MRSA? No HIV? No TB? No Anxiety? No Depression? No Cancer? No More? No Immunization HX DT/Tetanus > 10 Years Ago Surgical Hx Previous Surgery?Y KNOTS REMOVED FROM SCALP FINGER SEWED BACK ON X 2 Social History Smoking Hx Smoker: Never Smoker Tobacco: No Packs/day < 1 Pack Alcohol Alcohol: No Review of Systems All Other Systems Reviewed and Negative ENT nose discharge, nose congestion. Respiratory cough Physical Exam Vital Signs Vital Signs Date Time Temp Pulse Resp B/P Pulse O2 O2 Flow FiO2 Ox Delivery Rate 09/01 904 98.9 99 20 127/86 99 General Appearance normal appearance, WD/WN, no apparent distress Ear, Nose, Throat sinus pain/drainage, nasal congestion, Tenderness noted maxillary sinus, bilatateral turbinates red, reports thick yellowish sputum Respiratory Status Yes: trachea midline, chest symmetrical, non tender chest. No: respiratory distress. Lung Sounds bilateral: normal breath sounds, lungs clear. Cardiovascular normal exam, regular rate/rhythm, no peripheral edema Neurologic alert, normal exam, oriented x 3 Medical Decision Making LABS/Meds/Orders Pt receiving controlled substance in ED? No Results/Orders Current Medication Orders Sig/[place] Start time Last Medication Dose Route Stop Time Status Admin Methylprednisolone 125 MG ONCE ONE 09/01 915 DC Sodium Succinate IM 09/01 916 Methylprednisolone 0 .STK-MED ONE 09/01 915 DC Sodium Succinate .ROUTE Departure Departure Time of Disposition 915 Disposition DC Home or Self Care(routine) Clinical Impression Primary Impression: Sinusitis Qualifiers: Sinusitis location: maxillary Chronicity: unspecified Qualified Code: J32.0 - Chronic maxillary sinusitis Condition STABLE Referrals Rosie Goodwin APRN (Family): 3 Days-Call Office if no improvement or worsening of symptoms Patient Instructions DI for Sinusitis, Sinusitis Additional Instructions Start antibiotic. Sinus infections may take 2-3 days to notice much improvement so be sure to use conservative measures as discussed for symptoms Flonase 2 spray in each nostril daily to help with nasal congestion, sinus an ear pressure/inflammation Lots of Fluids Sleep elevated Humidifer/vaporizer Discharge Counseling Counseled pt/family regarding diagnosis, medications/RX, home care, follow up needs Prescriptions Current Visit Scripts Levofloxacin (Levaquin 500MG) 500 MG PO DAILY #10 TAB Fluticasone Propionate (Flonase 50 Mcg Nasal [place]) 2 SPRAY NA DAILY #1 BOT at 0919
[2017-09-01 09:23] VITALS: BP 127/86
== END 2017-09-01 09:23 | disposition home or self-care (01) ==
LOC: UTC 08:51
DX: J32.0 Chronic maxillary sinusitis (principal); I10 Essential (primary) hypertension; K21.9 Gastro-esophageal reflux disease without esophagitis; Z79.51 Long term (current) use of inhaled steroids; Z79.899 Other long term (current) drug therapy; Z88.0 Allergy status to penicillin; Z88.2 Allergy status to sulfonamides; Z88.8 Allergy status to other drugs, medicaments and biological substances